=== PATIENT | female | born 2000 | race Caucasian/White ===

== ENCOUNTER 2022-09-22 11:02 | Emergency (ER) | payer BC, SELFPAY ==
--- NOTE | 2022-09-22 11:12 | ED.URI ---
HPI - URI/Sore Throat General Chief Complaint: Upper Respiratory Infection Stated Complaint: sore throat Time Seen by Provider: 09/22/22 11:18 Source: patient, RN notes reviewed and old records reviewed Mode of arrival: ambulatory Limitations: no limitations History of Present Illness HPI Narrative: 21-year-old female presents to the [facility] with complaints of a sore throat. no treatment prior to arrival. Related Data Allergies Allergy/AdvReac Type Severity Reaction Status Date / Time No Known Allergies Allergy Verified 09/22/22 11:22 Review of Systems Review of Systems: All systems reviewed & are unremarkable except as noted in HPI and below Constitutional: Constitutional: Reports no additional constitutional complaints, Denies chills and Denies fever(s) Eyes: Eyes: Reports no additional eye complaints ENT: Reports as per HPI and Reports sore throat Cardiovascular: Cardiovascular: Reports no additional cardiovascular complaints Respiratory: Respiratory: Reports no additional respiratory complaints Gastrointestinal: Gastrointestinal: Reports no additional gastrointestinal complaints Musculoskeletal: Musculoskeletal: Reports no additional musculoskeletal complaints Integumentary/Breasts: Skin/Breast: Reports system reviewed and no additional complaints, except as docu Neurologic: Reports system reviewed and no additional complaints, except as documented Psychiatric: Psychiatric: Reports no additional psychiatric complaints Allergic/Immunologic: Allergic/Immunologic: Reports no additional allergic/immunologic complaints PMFSH Past Medical History Medical History No significant medical problems Surgical History Surgical History (Updated 09/22/22 @ 13:16 by Soraya Denton APRN) No history of previous surgery Social History Social History (Updated 09/22/22 @ 13:16 by Soraya Denton APRN) Living arrangements: with family Gender identity (if verbalized by the patient): Female Comments At the time of my signature, I reviewed and agree with the nursing past medical, surgical, social, and family history. There is no relevant family history pertinent to the patient complaint. Exam Const: General: healthy appearing, comfortable, no acute distress, well developed, alert and well nourished Nutritional Appearance: well nourished Orientation/consciousness: patient oriented x3 Limitations: no limitations HENMT: Head: normal to inspection Ears: external ears normal, TM's normal bilaterally and EAC's normal Face/Nose/Sinus: Normal external nose present and Nasal discharge present clear bilateral Face and sinus: normal facial exam Mouth: Yes Normal oral and palatal mucosa present, Yes lip normal and Yes moist mucous membranes Throat: posterior oropharynx normal and uvula midline Eyes: General: appearance normal, both eyes and all related structures Conjunctivae: conjunctivae normal Pupils: Equal, round and reactive pupils present Neck: Neck: normal visual inspection, full ROM, no lymphadenopathy and no meningeal signs Chest: Chest palpation & inspection: normal inspection of the chest Resp: Effort & Inspection: normal respiratory effort and no use of accessory muscles Auscultation: clear to auscultation bilaterally, no crackles, no rales, no rhonchi and no wheezes Cardio: Rate: regular rate Rhythm: regular rhythm Back/Spine/Pelvis: Cervical Spine: cervical ROM normal and No Cervical spine tenderness Thoracic/Lumbar Spine: thoracic and lumbar spine normal to inspection and thoraco-lumbar ROM normal Skin: General skin exam: normal color Rashes: no rashes Wounds: no wounds Neuro: General: patient oriented x3, moves all extremities, no meningeal signs and no focal motor deficits Cranial nerves: Yes Equal, round and reactive pupils present Speech: normal speech Gait exam (Neuro): Normal gait present Extrem: General: normal to inspection, fu
[2022-09-22 11:20] VITALS: BP 128/69; PULSE 95; RESP 18; TEMP 36.7; O2SAT 99
== END 2022-09-22 12:00 | disposition home or self-care (01) ==
PROVIDERS: Emergency Provider Nurse Practitioner
DX: J06.9 Acute upper respiratory infection, unspecified (principal); Z20.822 Contact with and (suspected) exposure to COVID-19
CPT/HCPCS: 87081; 87426; 87804; 87880; 99213; C9803; G0463

== ENCOUNTER 2025-08-06 08:32 | Emergency (ER) | payer OTHER, SELFPAY ==
--- NOTE | 2025-08-06 08:33 | ED.SKABFB ---
HPI - Skin/Abscess/Foreign Bdy General Chief complaint: Skin/Abscess/Foreign Body Stated complaint: left leg infection Time Seen by Provider: 08/06/25 08:40 Source: patient Mode of arrival: ambulatory Limitations: no limitations History of Present Illness HPI narrative: Salena is a 24-year-old female patient presenting to the clinic today with complaints of possible left leg infection x2 days.. She reports she woke up Saturday and noticed a swollen painful area to her left anterior leg. Does not recall being bit by an insect. States she does not recall a pustule starting on the area. States she just woke up in the area was there. No fevers, chills, body aches. Area is very tender to palpation. She is able to express pus out of the wound. States it is yellow in color. Rates pain currently a 8/10. No history of MRSA Related Data Allergies Allergy/AdvReac Type Severity Reaction Status Date / Time No Known Allergies Allergy Verified 08/06/25 08:46 Review of Systems Review of Systems: Pertinent positives per HPI. Patient denies any fever, chills, rash, headache, visual changes, dizziness, cough, runny nose, sore throat, shortness of breath, chest pain, palpitations, nausea, vomiting, diarrhea, constipation, abdominal pain, or any urinary issues. PMFSH Past Medical History Medical History No significant medical problems Surgical History Surgical History No history of previous surgery Social History Social History Living arrangements: with family Gender identity (if verbalized by the patient): Female Comments At the time of my signature, I reviewed and agree with the nursing past medical, surgical, social, and family history. There is no relevant family history pertinent to the patient complaint. Exam Narrative: General: Well-developed, well nourished, in no apparent distress Head: Normocephalic, atraumatic. Cardio: Regular rate and rhythm, s1 and s2 normal, no murmur appreciated. Resp: Clear to auscultation bilaterally, no rhonchi, rales, wheezing or rubs. Integumentary: [place], warm, and dry, indurated, non fluctuant, tender, erythemic area measuring 3 cm x 3 cm to the left anterior mid leg with localized redness measuring 10 cm x 14 cm. No discharge present. Course Course Emergency Course: Portions of this record may have been created with voice recognition software. Level of Care: Express Care Visit Vital Signs Vital signs: Vital Signs Temperature 36.4 C 08/06/25 08:37 Pulse Rate 84 08/06/25 08:37 Respiratory Rate 16 08/06/25 08:37 Blood Pressure 140/74 08/06/25 08:37 Pulse Oximetry 100 08/06/25 08:37 Oxygen Delivery Room Air 08/06/25 08:37 Temperature 36.4 C 08/06/25 08:37 Pulse Rate 84 08/06/25 08:37 Respiratory Rate 16 08/06/25 08:37 Blood Pressure 140/74 08/06/25 08:37 Pulse Oximetry 100 08/06/25 08:37 Oxygen Delivery Room Air 08/06/25 08:37 Vital signs reviewed MDM - Skin/Abscess/Foreign Bdy MDM Narrative Medical decision making narrative: At the time of visit patient is resting comfortably on the exam table. Patient appears to be nontoxic. Complaints of possible left leg infection x2 days.. She reports she woke up Saturday and noticed a swollen painful area to her left anterior leg. Does not recall being bit by an insect. States she does not recall a pustule starting on the area. States she just woke up in the area was there. No fevers, chills, body aches. Area is very tender to palpation. She is able to express pus out of the wound. States it is yellow in color. Rates pain currently a 8/10. No history MRSA. On exam patient has indurated, non fluctuant, tender, erythemic area measuring 3 cm x 3 cm to the left anterior mid leg with localized redness measuring 10 cm x 14 cm. No discharge present. Plan: I suspect patient has a bacterial skin infection. Prescription clindamycin was sent to the pharmacy. Recommend probiotic daily 2 hours before 2 hours after taking with the antibiotic doses. Recommend a wound check in 3-5 days. Supportive measures were discussed with the patient and they voiced understanding discharge instructions and agrees to treatment plan. Return precautions reviewed Differential Diagnosis Differential diagnosis: Likely abscess of skin or subcutaneous tissue, viral exanthem, dermatophytosis, urticaria, herpes zoster, allergic reaction to drug, cellulitis, eczema, insect bites, impetigo and contact dermatitis Discharge Plan Discharge Clinical Impression: Bacterial skin infection Patient Disposition: Home Condition: Stable Instructions: Antibiotic Form, Cellulitis (ED) Additional Instructions: Take clindamycin as prescribed May take Tylenol/Motrin as needed for pain or fever as per bottle directions Wash area daily with soap water and pat dry Keep area clean and dry If area is draining may keep it covered using a Band-Aid Watch for signs and symptoms of worsening infection-increase and redness, streaking, swelling, purulent discharge, or increase in pain. Follow up with your PCP in 3-5 days for wound check. Patient Language: Mauritian Prescriptions: New clindamycin HCl [Cleocin HCl] 300 mg capsule 300 mg PO Q8H 7 Days Qty: 21 0RF No Action methylprednisolone [Methylpred DP] 4 mg tablets,dose pack See Rx Instructions PO .COMPLEX Qty: 21 0RF Rx Instructions: orally per package directions Follow-up/Referrals: UNKNOWN,DOCTOR [Non-Staff] Time of Disposition: 08:48 Quality NIHSS Nursing Documentation ED NIHSS nursing documentation: reviewed/agree
[2025-08-06 08:37] VITALS: BP 140/74; PULSE 84; RESP 16; TEMP 36.4; O2SAT 100
--- OUTSIDE RECORDS SUMMARY | 2025-08-06 08:38 | XMS_ITS | Encounter Summary ---
Author Organization [facility] Healthcare Address [address] [place] [address] Care Team Providers Care Hydrometer Calibrator Name Role Phone Dolores Willis NP Primary Care Provider [phone] Jesús Garcia MD Unavailable Encounter Details Date Type Department Care Team (Late st Contact Info) Description 07/18/2021 Telephone [facility] - [facility] [address] [place] [address] Transcribed Order, Provider Social History Tobacco Use Types Packs/Day Years Used Date Smoking Tobacco: Never Smokeless Tobacco: Never AUDIT-C Answer Date Recorded Q1: How often do you have a drink containing alc ohol? Monthly or less 04/11/2021 Average Number of Drinks Not on file 021 Q3: How often do you have si x or more drinks on one occasion? 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
--- OUTSIDE RECORDS SUMMARY | 2025-08-06 08:38 | XMS_ITS | Encounter Summary ---
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
--- OUTSIDE RECORDS SUMMARY | 2025-08-06 08:38 | XMS_ITS | Clinical Summary ---
Author Organization [facility] [address] [facility] [address] Address [address] [place] [address] Care Team Providers Care Hotbed Transfer Operator Name Role Phone Dolores Willis NP Primary Care Provider Jesús Garcia MD Unavailable [phone] Allergies No known active allergies Medications inhalational spacing device (AEROCHAMBER PLUS FLOW-VU) spacer inhale by oral route 1 0 08/20/20 12 Active dilTIAZem (CARDIZEM) 30 mg tabletIndications:PS VT (paroxysmal supraventricular tachycardia) TAKE 1 TABLET BY MOUTH TWICE DAILY( TAKE ONE TABLET, WAIT 15 MINUTES,THEN TAKE SECOND TABLET FOR TACHYCARDIA) 30 tablet 11 08/18/20 21 Active ZMO06-apuw cb,wi-mbgjy-pxw-dha 27-1-50-250 mg combo pack Take 1 capsule by mouth Active aspirin 81 mg chewable tablet Take 81 mg by mouth daily Active blood-glucose meter misc 1 Device 4 (four) times a day 1 each 04/03/20 22 Active Additional Information Patient not taking.Reported on 09/20/2022 OneTouch Delica Plus Lancet 33 gauge misc 1 Device 4 (four) times a day 04/03/20 22 Active docusate sodium (COLACE) 100 mg capsuleIndications:c onstipation,Stool Softener Take 1 capsule (100 mg total) by mouth 2 (two) times a day 30 capsule 05/09/20 Active Additional Information Patient not taking.Reported on 09/20/2022 ibuprofen (ADVIL,MOTRIN) 600 mg tabletIndications:Cr amps Take 1 tablet (600 mg total) by mouth every 6 (six) hours as needed for pain 60 tablet 05/09/20 Active oxyCODONE-acetaminop hen (PERCOCET) 5-325 mg per tabletIndications:Pa in Take 1 tablet by mouth every 4 (four) hours as needed for pain 20 tablet 05/09/20 Active Additional Information Patient not taking.Reported on 09/20/2022 Hospital, Clinic, or Other Facility Administered Medication Ordered Dose Route Frequency Start Date End Date Status levonorgestreL (MIRENA) 20 mcg/24 hours (7 yrs) 52 mg IUDIndications:Abno rmal Uterine Bleeding, Contraception intrauterine Continuous (implanted device) 06/20/2022 7 Active Active Problems Problem Noted Date Diagnosed Date infant of 39 completed weeks of gestatio n 05/05/2022 Failure of cervical dilation 05/05/2022 Overview (05/07/2022): Added automatically from request for surgery [id number] Achilles tendon disorder 05/02/2022 Encounter for ultrasound to check growth 0 04/19/2022 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 No radiating pain. No pain on palpation of body areas. Does not appear to be hip joint pain. Recommended NSAIDs prn and stretching BID. Gave list of hp stretches to do. If not improving in about a week, would refer to PT. Return to clinic if symptoms persist, worsen, or other concerns. Palpitations 06/18/2016 Anxiety 06/07/2016 Migraines 12/22/2014 Overview (05/02/2022): Chronic Tension Headaches and Migraines Benign intracranial hypertension 10/26/2014 Overview (02/21/2017): Pseudotumor cerebri Assessment & Plan (06/24/2017 6:26 AM CDT): See above. Atopic rhinitis 10/31/2012 Overview (05/02/2022): Allergic Rhinitis Resolved Problems Problem Noted Date Diagnosed Date Resolved Date Large for dates 04/16/2022 04/19/2022 Localized swelling of left lower leg 12/25/2021 04/19/2022 Establish gestational age, ultrasound 09/28/2021 01/22/2022 Confirm cardiac activi ty using ultrasound 09/28/2021 01/22/2022 Overweight (BMI 25.0-29.9) 03/12/2018 0 04/11/2021 Fever 10/02/2017 04/11/2021 Assessment & Plan (10/02/2017 2:09 PM L TACKER): Acetaminophen or Ibuprofen as needed for discomfort. Focus on comfort care and encourage fluids. Return to clinic if symptoms persist, worsen, or other concerns. Viral upper respiratory tract infection 10/02/2017 04/11/2021 Assessment & Plan (10/02/2017 3:04 PM L TACKER): Rapid strep negative. Will follow culture and start abx if indicated. Continue supportive care. Acetaminophen or Ibuprofen as needed for discomfort. Nasal saline and humidifier. May give honey +/- tea for sore throat and/or cough. May gargle w/ mixture of liquid Benadryl and Maalox to help coat throat. Avoid smoke exposure. Return to clinic if symptoms persist, worsen, or other concerns. Chronic daily headache 06/21/201704/11 Assessment & Plan (06/21/2017 4:03 PM CDT): Continue Diamox. Start Topamax. Gradually titrate to migraine prophylaxis dose of 50mg BID. Discussed possible side effects of weight loss, paresthesias, fatigue, nausea, and difficulty with memory, concentration, or language. Will wean off Celexa as it had not added benefit. Decrease to 10mg this month and then stop. 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 Continue Tylenol/Motrin/Axert as needed. Immunizations Immunization Administration Dates Next Due DTP 07/02/2000, 0,05/02/2000,05/02,01/29/2000,01/29/2000 DTaP 12/20/2003,12/20/2003 DTaP / HiB 02/17/2001,02/17/2001 HPV, Quadrivalent 08/11/2014,08/20/2012,05/05/20 12 Hep A, Pediatric 08/11/2014,08/20/2012 Hep B, Adolescent or Pediatric 08/11/2014,2003,01/13/2001 Hep B, Unspecified 12/20/2003,01/13/2001 Hib (PRP-T) 07/02/2000, 0,05/02/2000,05/02,01/29/2000,01/29/2000 IPV 12/20/2003, 4,01/13/2001,01/13,05/02/2000,05/02/2000,01/29/2000 ,01/29/2000 Influenza LAIV (Nasal) 08/17/2010,08/17/2010 Influenza, Quadrivalent, Spl it, Preservative Free, Intramuscular 08/10/2017,08/21/2016 Influenza, Split 08/20/2012,09/21/2011 Influenza, Unspecified 08/24/2022,08/14/2021 MMR 12/20/2003, 4,01/13/2001,01/13 Meningococcal MCV4P (Menactra) 08/21/2016,2011 PPD TEST 08/10/2017 Pfizer SARS-CoV-2 Monovalent Vaccination (12+ Yrs) PURPLE 12/09/2020,11/18/2020 Pneumococcal Conjugate 7-Valent 07/02/20 00,07/02/2000,05/02/2000,05/02 Tdap 02/22/2022,05/05/2012 Varicella 08/11/2014 Surgical History Surgery Date Site/Laterality Comments EPIDURAL BLOOD PATCH 09/03/2014 N/A LUMBAR PUNCTURE WO INJECTION, DIAGNOSTIC 08/30/2014 N/A FOOT SURGERY Foot Surgery - x2 (Added by [facility] Conv) FINE NEEDLE ASPIRATION THYROIDECTOMY / EXCISION CYST THYROID 11/11/2020 - 11/10/2021 Medical History Medical History Date Comments Atopic rhinitis Allergic Rhiniti s Benign intracranial hypertension Pseudotumor cerebri SVT (supraventricular tachycardia) 07/2021 Palpitations palpitations; Ou tcome: 24 hour holter monitor Heterozygous for prothrombin [id number] mutation Allergic rhinitis ALVAREZ/allergic rh initis Achilles tendon disorder 10/31/2012 Percuta neous tendon-Achilles lengthening, [place] Achilles tendon disorder 09/2013 Percuta neous tendon-Achilles lengthening, [place]; Laterality: left Migraines Chronic Tension Headaches and Migraines Family History Medical History Relation Name Comments No Known Problems Brother Blood Clot Father Leland Pacheco Deep vein thrombosis Father Leland Pacheco Factor V Leiden Father Leland Pacheco Hypertension Father Leland Pacheco Other Father Leland Pacheco Lung cancer Maternal Grandmother Cervical cancer Mother Hyperlipidemia Mother Osteoarthritis Mother Osteoporosis Mother Other Mother No Known Problems Sister Breast cancer Neg Hx Colon cancer Neg Hx Ovarian cancer Neg Hx Uterine cancer Neg Hx Relation Name Status Comments Brother Alive Father Leland Pacheco Alive blood clot legs /?lung Maternal Grandmother Alive Mother Alive Sister Alive Social History Tobacco Use Types Packs/Day Years Used Date Smoking Tobacco: Never Smokeless Tobacco: Never Tobacco Cessation:Counseling Given: Not Answered AUDIT-C Answer Date Recorded Q1: How often do you have a drink containing alc ohol? Monthly or less 04/11/2021 Average Number of Drinks Not on file 021 Q3: How often do you have si x or more drinks on one occasion? Never 04/11/2021 PHQ-2 Answer Date Recorded PHQ-2 Total Score (If total score is 3 or more points, staff should administer the PHQ-9) 0 11/07/2021 Phoenix Depression Scale Answer Date Recorded Phoenix Depression Scale Total 2 06/20/2022 The thought of harming myself has occurred to me . Never 06/20/2022 Comments No Sex and Gender Information Value Date Recorded Sex Assigned at Not on file Legal Sex Female 12:48 AM L TACKER Gender Identity Female 04/10/2021 7:07 PM CDT Sexual Orientation Straight 04/10/2021 7: 07 PM CDT Obstetrics History Para Term AB IAB SAB Ectopic Multiple Livin g Live Births 1 1 1 0 0 0 0 0 0 1 1 Date Outcome GA Total Labor Labor/2nd/3rd Weight Sex Type Anes PTL Junie A1 A5 Name Clin 2021 Term 39w 3d 3.37 kg (7 lb 6.9 oz) M CS-LT ranv Epidur al N Livin g 8 9 FERRE LL,MAGALIE YHALE Linnette Michael MD PhD Complications:None Delivery Location:This Facil ity ([facility]) Comments:See Dr. Meggan ghosh's note Last Filed Vital Signs Vital Sign Reading Time Taken Comments Blood Pressure 112/78 09/20/2022 10:33 AM L TACKER Pulse 85 05/10/2022 7:26 AM CDT Temperature 36.7 C (98 F) 05/10/2022 7:26 AM CDT Respiratory Rate 16 05/10/2022 7:26 AM CDT Oxygen Saturation 98% 05/10/2022 7:26 AM CDT Inhaled Oxygen Concentration - - Weight 94.8 kg (209 lb) 09/20/2022 10:33 AM L TACKER Height 167.6 cm (5' 6) 09/20/2022 10:33 AM L TACKER Body Mass Index 33.73 09/20/2022 10:33 AM L TACKER Plan of Treatment Health Maintenance Due Date Last Done Comments Varicella Vaccines (2 of 2 - 13+ 2-dose series) 09/08/2014 08/11/2014 Regular Well Visit/Exam 18-64 2017 Cervical Cancer Screening 04/11/2022 04/11/2021 Depression Screening 06/20/2023 06/20/2022, 11/07/2021, 06/21/2017 Covid-19 Vaccine ( season) 2025 11/28/2021, 12/09/2020, 11/18/2020 Influenza Vaccine (#1) 2025 , 08/14/2021, 08/10/2017, Additional history exists DTaP/Tdap/Td Vaccine (8 - Td or Tdap) 02/23/2032 02/22/2022, 05/05/2012, 12/20/2003, Additional history exists Pneumococcal vaccine <65 Aged Out 000, 07/02/2000, 05/02/2000, Additional history exists No longer eligible based on patient's age to complete this topic HPV Vaccines Completed 08/11/2014, 08/11, 05/05/2012 Hepatitis B Screening Completed 08/11/2014 , 12/20/2003, 12/20/2003, Additional history exists Hepatitis C Screening Completed 10/02/2021 Medical Devices Implanted Type Area Event Staff Device Identifier Shelf Expiration Date Model / Serial / Lot SIRS-Lab Seprafilm 6x5in Barrier Adhesion Sterile Disposable Latex Free [id number] - [id number] Implanted:Qty: 1 on 05/07/2022 by Barb Martin MD PhD at [facility] N/A: Abdomen SIRS-Lab [id number] 07/13/2024 [id number] / / [id number] Procedures Procedure Name Priority Date/Time Associated Diagnosis Comments HEPATITIS C ANTIBODY Routine 10/02/2021 4:09 PM L TACKER Initial obstetric visit, first trimester 8 weeks gestation of PAP WITH REFLEX TO HIGH RISK HPV Routine 04/11/2021 10:29 AM CDT Well woman exam from Last 3 Months or Most Recently Relevant to Health Maintenance Results * Hepatitis C antibody (10/02/2021 4:09 PM L TACKER) Hep C Ab Nonreactive [facility] Comment: Interpretive Data Nonreactive: Antibodies to HCV not detected. Does NOT exclude the possibility of recent exposure to HCV. Equivocal: Equivocal for HCV antibodies. Supplemental molecular testing will be automatically performed to determine infection status in accordance with current CDC screening recommendations. Reactive: Positive for HCV antibodies. This may represent current or past HCV infection. Supplemental molecular testing will be automatically performed to determine current infection status in accordance with current CDC screening recommendations. Interpretive data was last revised on 2020. Blood 10/02/2021 4:09 PM L TACKER 10/02/2021 7:11 PM L TACKER us Barb Martin MD PhD LAB MICROBIOLOGY - GEN ERAL ORDERABLES Final Result [facility] [address] Department [place] [address] * Pap with reflex to High Risk HPV (04/11/2021 10:29 AM CDT) Swab (Pap test) 04/11/2021 1 0:29 AM CDT 04/11/2021 4:11 PM CDT Narrative PATHOLOGY [facility] - 04/12/2021 8:30 PM CDT EPIC results best viewed via link to PDF [address] [address] Tele: Marlin Lea MD - [employer] CYTOLOGY REPORT Patient Name: EULALIA PACHECO Address: [address] [place] [address] Gender: F : 2000 (Age: 20) Service: Laboratory Location: Lab Hospital #: [id number] Patient Type: [facility] Taken: 04/11/2021 Reported: 04/12/2021 Physician(s): ADARSH Jordan FINAL DIAGNOSIS: Specimen Type: - ThinPrep Pap w/ reflex HPV Statement of Specimen Adequacy: Source: Cervical/Endocervical - Satisfactory for interpretation - Endocervical /Transformation Zone component present - Scant Cellularity - Case screened using computer assisted imaging technology General Categorization: - Negative for intraepithelial lesion or malignancy jx/04/12/2021 20:30 RAFFAELE Smiley(ASCP), [place] Report Reviewed and Electronically Signed By RAFFAELE Smiley(ASCP), CMIA Clerical Data Follow A; [id number] CLINICAL DIAGNOSIS AND HISTORY Last Menstrual Period: 15 REPORT IMAGES AND/OR SCANNED DOCUMENTS ONLY VIEWABLE IN PDF FORMAT The Pap test is a screening test used to aid in the detection of cervical cancer and its precursors. It should not be the sole means by which malignant and premalignant lesions are diagnosed. Both false negative and false positive results may occur. It also has poor sensitivity for the detection of endometrial lesions and should not be used to evaluate suspected endometrial abnormalities. For these reasons it is most important to obtain Pap tests at regular intervals, as recommended by your physician or nurse practitioner. Saskia Trujillo NP LAB CYTOLOGY ORDERABLES Fin al Result PATHOLOGY [facility] Laboratory Receiving [address] [place] [address] from Last 3 Months or Most Recently Relevant to Health Maintenance Insurance [employer] [place] [facility] Advance Directives For more information, please contact: [phone] * Full Code (Latest Code Status on File) Date Activated Date Inactivated Comments 05/07/2022 3:58 PM 05/10/2022 6:11 PM * Full Code Date Activated Date Inactivated Comments 05/05/2022 11:28 PM 05/07/2022 3:58 PM Full CPR in case of cardiopulmonary arrest Care Teams Hotbed Transfer Operator Relationship Specialty Start Date End Date Dolores Willis NP PCP - General 03/12/18 Jesús Garcia MD Agency Service Representative Cardiology 05/02/22
== END 2025-08-06 09:03 | disposition home or self-care (01) ==
PROVIDERS: Emergency Provider Nurse Practitioner Family
DX: L08.89 Other specified local infections of the skin and subcutaneous tissue (principal); B96.89 Other specified bacterial agents as the cause of diseases classified elsewhere
CPT/HCPCS: 99213; G0463